=== PATIENT | male | born 1980 | race Caucasian/White ===

== ENCOUNTER 2017-07-05 06:41 | Emergency (ER) | payer MEDICAID ==
[~2017-07-05] VITALS: Ht 177.8 cm; Wt 63.5 kg
[~2017-07-05 06:41] MED LIST: ATEN50TA PO; EZET1TAB PO; INDO75CA3 PO; LANS15TA4 PO; OLME1TAB32 PO
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
--- NOTE | 2017-07-05 06:51 | NUR ---
Dr Ocampo at bedside to eval.
--- NOTE | 2017-07-05 07:15 | NUR ---
Patient is resting comfortably in bed with eyes closed. Easily aroused. VSS
--- NOTE | 2017-07-05 07:25 | NUR ---
Patient transported for xray.
--- NOTE | 2017-07-05 08:27 | NUR ---
Patient discharged to home in stable condition. Written and verbal after care instructions given. Patient verbalizes understanding of instruction. No sign of unilateral weakness. Patient wheeled out of ER and appears stable at this time.
[2017-07-05 08:31] VITALS: BP 114/71
== END 2017-07-05 08:35 | disposition home or self-care (01) ==
LOC: ER 06:44
DX: M54.5 Low back pain (principal); F17.200 Nicotine dependence, unspecified, uncomplicated; I69.351 Hemiplegia and hemiparesis following cerebral infarction affecting right dominant side; Z88.0 Allergy status to penicillin
CPT/HCPCS: 72100-TC; A4606; Z7610

== ENCOUNTER 2018-11-21 03:46 | Emergency (ER) | payer MEDICAID ==
[~2018-11-21] VITALS: Ht 180.3 cm; Wt 79.4 kg
[~2018-11-21 03:46] MED LIST changes: -EZET1TAB PO; +EZET1TAB22 PO; -LANS15TA4 PO; +LANS15TA5 PO
[2018-11-21 04:04] VITALS: BP 134/76
== END 2018-11-21 06:43 | disposition home or self-care (01) ==
LOC: ER 03:48
DX: M25.551 Pain in right hip (principal); F17.200 Nicotine dependence, unspecified, uncomplicated; Z86.73 Personal history of transient ischemic attack (TIA), and cerebral infarction without residual deficits; Z88.0 Allergy status to penicillin; Z98.890 Other specified postprocedural states; Z60.2 Problems related to living alone; Z79.899 Other long term (current) drug therapy
CPT/HCPCS: 71045; 73502; 99283; A4606

== ENCOUNTER → 2021-12-21 | Emergency (ER) | payer MEDICAID ==
[~2021-12-21] VITALS: Ht 180.3 cm; Wt 79.4 kg
[~2021-12-21] MED LIST changes: +IV NS 0.9% 1,000 ML BAG IV ONE
[2021-12-21 14:32] LABS: BASOPHILS % (AUTO) 0.3 % (0.0-2.0); EOSINOPHILS % (AUTO) 0.7 % (0.0-6.0); HEMATOCRIT 37 % (39-51); HEMOGLOBIN 12.2 g/dL (13.5-17.5); LYMPHOCYTES # (AUTO) 2.8 K/uL (0.8-4.8); LYMPHOCYTES % (AUTO) 28.2 % (20.0-44.0); MEAN CORPUSCULAR HGB CONC 33 g/dl (31.0-36.0); MEAN CORPUSCULAR VOLUME 90 fL (80-96); MONOCYTES # (AUTO) 0.8 K/uL (0.1-1.30); MONOCYTES % (AUTO) 8.4 % (2.0-12.0); NEUTROPHILS # (AUTO) 6.1 K/uL (1.8-8.9); NEUTROPHILS % (AUTO) 62.4 % (43.0-81.0); PLATELET COUNT (AUTO) 263 K/uL (150-450); RED BLOOD CELL COUNT(AUTO) 4.11 MIL/uL (4.5-6.0); WHITE BLOOD COUNT (AUTO) 9.8 K/uL (4.3-11.0)
--- NOTE | 2021-12-21 14:38 | NUR ---
pt bibra c/o feeling weak and lower back pain.pt is drowsy pt is connected to monitor.
[2021-12-21 14:51] LABS: CALCIUM, SERUM 8.8 mg/dL (8.5-10.1); CARBON DIOXIDE 28 mmol/L (21-32); CHLORIDE 103 mmol/L (98-107); GLUCOSE 136 mg/dL (74-106); POTASSIUM 3.7 mmol/L (3.5-5.1); SODIUM SERUM 136 mmol/L (136-145); UREA NITROGEN, BLOOD 13 mg/dL (7-18)
[2021-12-21 14:56] LABS: ALANINE AMINOTRANSFERASE 35 U/L (12-78); ALBUMIN 3.8 g/dL (3.4-5.0); ALCOHOL, BLOOD < 3 mg/dL (0-0); ALKALINE PHOSPHATASE 64 U/L (46-116); ASPARTATE AMINOTRANSFERASE 28 U/L (15-37); BILIRUBIN,DIRECT 0.1 mg/dL (0.0-0.2); BILIRUBIN,TOTAL 0.3 mg/dL (0.2-1.0); TOTAL PROTEIN, SERUM 7.7 g/dL (6.4-8.2)
[2021-12-21 15:06] LABS: THYROID STIMULATING HORMONE 1.481 uIU/mL (0.358-3.74)
[2021-12-21 15:41] LABS: BILIRUBIN,URINE NEGATIVE (NEGATIVE); COLOR,URINE YELLOW (YELLOW); LEUKOCYTE ESTERASE ,URINE NEGATIVE (NEGATIVE); NITRITE, URINE NEGATIVE (NEGATIVE); PROTEIN,URINE NEGATIVE (NEGATIVE); UGLUCOSE NEGATIVE (NEGATIVE)
--- NOTE | 2021-12-21 16:34 | NUR ---
Patient discharged to home in stable condition. Written and verbal after care instructions given. Patient verbalizes understanding of instruction.IV removed. Catheter intact and site benign. Pressure and 4x4 applied to site. No bleeding noted.
[2021-12-21 16:35] VITALS: BP 109/66
== END | disposition home or self-care (01) ==
LOC: ER 13:56
DX: F19.10 Other psychoactive substance abuse, uncomplicated (principal); R40.4 Transient alteration of awareness; F17.200 Nicotine dependence, unspecified, uncomplicated; Z86.73 Personal history of transient ischemic attack (TIA), and cerebral infarction without residual deficits; Z88.0 Allergy status to penicillin; Z60.2 Problems related to living alone; Z79.899 Other long term (current) drug therapy
CPT/HCPCS: 36415; 70450; 71045; 80048; 80076; 80307; 80320; 81003; 82962; 84443; 85025; 93005; 96360; 99285; J7030; G0480